=== PATIENT | female | born 1960 | race Caucasian/White ===

== ENCOUNTER → 2017-05-31 | Outpatient (CLI) | payer MEDICAID | END | disposition home or self-care (01) | LOC: LAB 15:55 | PROVIDERS: ATTEND Internal Medicine | DX: L73.9 Follicular disorder, unspecified (principal) | CPT/HCPCS: 87081 ==

== ENCOUNTER → 2017-06-25 | Outpatient (CLI) | payer MEDICAID ==
[2017-06-25 09:34] LABS: Basophils # (auto) 0.1 uL; Basophils % (auto) 1.6 % (0.0-2.0); Eosinophils # (auto) 0.2 uL; Eosinophils % (auto) 5.1 % (0.0-7.0); Hematocrit 40.4 % (36.0-46.0); Hemoglobin 13.2 g/dL (12.2-16.2); Lymphocytes # (auto) 1.2 uL; Lymphocytes % (auto) 35.9 % (10.0-50.0); Mean Corpuscular Hemoglobin 30.9 pg (28.0-32.0); Mean Corpuscular Hgb Conc. 32.7 g/dL (32.0-36.0); Mean Corpuscular Volume 94.6 fL (80.0-100.0); Monocytes # (auto) 0.5 uL; Monocytes % (auto) 15.7 % (0.0-12.0); Neutrophils # (auto) 1.3 uL; Neutrophils % (auto) 41.7 % (37.0-80.0); Platelet Count (auto) 292 10^3/uL (140-450); Red Blood Cells 4.27 10^6/uL (4.0-5.20); Red Cell Distribution Width 13.3 % (11.8-14.3); White Blood Cell 3.2 10^3/uL (4.4-10.8)
[2017-06-25 09:46] LABS: Urine Bacteria NONE SEEN /hpf (None Seen); Urine Blood Negative /uL (Negative); Urine Specific Gravity 1.018 (1.001-1.035); Urine WBC <1 /hpf (0 - 5)
[2017-06-25 11:03] LABS: Albumin 3.8 g/dL (3.4-5.0); BUN/Creatinine Ratio 15.9; Bilirubin, Total 0.2 mg/dL (0.2-1.0); Calcium 9.1 mg/dL (8.5-10.1); Potassium 3.9 mmol/L (3.5-5.1); Total Protein 7.9 g/dL (6.4-8.2)
== END | disposition home or self-care (01) ==
LOC: LAB 08:55
PROVIDERS: ATTEND Internal Medicine
DX: F32.9 Major depressive disorder, single episode, unspecified (principal); R63.5 Abnormal weight gain; R79.89 Other specified abnormal findings of blood chemistry
CPT/HCPCS: 36415; 80053; 80061; 81001; 84403; 84443; 85025; 85652

== ENCOUNTER → 2017-08-10 | Outpatient (CLI) | payer MEDICAID ==
[2017-08-10 11:10] LABS: Basophils # (auto) 0 uL; Basophils % (auto) 1.1 % (0.0-2.0); Eosinophils # (auto) 0.2 uL; Eosinophils % (auto) 3.9 % (0.0-7.0); Hematocrit 42.6 % (36.0-46.0); Lymphocytes # (auto) 1.4 uL; Lymphocytes % (auto) 32.6 % (10.0-50.0); Mean Corpuscular Hemoglobin 30.8 pg (28.0-32.0); Mean Corpuscular Hgb Conc. 32.9 g/dL (32.0-36.0); Mean Corpuscular Volume 93.4 fL (80.0-100.0); Monocytes # (auto) 0.7 uL; Neutrophils % (auto) 45.4 % (37.0-80.0); Nucleated Red Blood Cells % 0.1 %; Platelet Count (auto) 312 10^3/uL (140-450); Red Blood Cells 4.56 10^6/uL (4.0-5.20); Red Cell Distribution Width 12.7 % (11.8-14.3); White Blood Cell 4.3 10^3/uL (4.4-10.8)
== END | disposition home or self-care (01) ==
LOC: LAB 10:29
PROVIDERS: ATTEND Internal Medicine
DX: D72.819 Decreased white blood cell count, unspecified (principal); E53.8 Deficiency of other specified B group vitamins
CPT/HCPCS: 36415; 82607; 85025

== ENCOUNTER → 2019-05-16 | Outpatient (CLI) | payer MEDICAID ==
[2019-05-16 12:49] LABS: Urine WBC None Seen /hpf (0 - 5)
[2019-05-16 12:51] LABS: Basophils # (auto) 0 10 ^3/uL (0-0.2); Basophils % (auto) 1.2 % (0.0-2.0); Eosinophils # (auto) 0.1 10 ^3/uL (0-0.8); Hematocrit 40.3 % (36.0-46.0); Hemoglobin 13.4 g/dL (12.2-16.2); Lymphocytes # (auto) 1.1 10 ^3/uL (0.4-5.4); Lymphocytes % (auto) 32.8 % (10.0-50.0); Mean Corpuscular Hemoglobin 31.6 pg (28.0-32.0); Mean Corpuscular Hgb Conc. 33.4 g/dL (32.0-36.0); Mean Corpuscular Volume 94.7 fL (80.0-100.0); Monocytes # (auto) 0.4 10 ^3/uL (0-1.3); Neutrophils # (auto) 1.6 10 ^3/uL (1.6-8.6); Platelet Count (auto) 306 10^3/uL (140-450); Red Blood Cells 4.25 10^6/uL (4.0-5.20); Red Cell Distribution Width 13.4 % (11.8-14.3); White Blood Cell 3.2 10^3/uL (4.4-10.8)
[2019-05-16 12:58] LABS: Urine Bacteria FEW /hpf (None Seen); Urine Blood Negative /uL (Negative); Urine Specific Gravity 1.007 (1.001-1.035)
[2019-05-16 13:17] LABS: Albumin 3.7 g/dL (3.4-5.0); Calcium 9.2 mg/dL (8.5-10.1); Potassium 4.2 mmol/L (3.5-5.1)
[2019-05-16 13:23] LABS: BUN/Creatinine Ratio 13.3; Bilirubin, Total 0.6 mg/dL (0.2-1.0); Total Protein 7.8 g/dL (6.4-8.2)
== END | disposition home or self-care (01) ==
LOC: LAB 12:30
PROVIDERS: ATTEND Internal Medicine
DX: K59.00 Constipation, unspecified (principal); F32.9 Major depressive disorder, single episode, unspecified
CPT/HCPCS: 36415; 80053; 80061; 81001; 84439; 84443; 85025; 85652

== ENCOUNTER → 2019-05-27 | Outpatient (CLI) | payer MEDICAID | END | disposition home or self-care (01) | LOC: LAB 08:45 | PROVIDERS: ATTEND Internal Medicine | DX: K59.00 Constipation, unspecified (principal); F32.9 Major depressive disorder, single episode, unspecified | CPT/HCPCS: 82270 ==

== ENCOUNTER → 2020-07-30 | Outpatient (CLI) | payer MEDICAID ==
[2020-07-30 11:50] LABS: Cholesterol 232 mg/dL (< 200)
[2020-07-30 11:53] LABS: HDL Cholesterol 91 mg/dL (40-59); LDL Cholesterol 130 mg/dL (< 100); Triglycerides 94 mg/dL (< 150)
== END | disposition home or self-care (01) ==
LOC: LAB 10:51
PROVIDERS: ATTEND Internal Medicine
DX: Z12.11 Encounter for screening for malignant neoplasm of colon (principal); E78.5 Hyperlipidemia, unspecified
CPT/HCPCS: 36415; 80061

== ENCOUNTER → 2021-02-10 | Outpatient (CLI) | payer MEDICAID ==
[2021-02-10 11:25] LABS: Cholesterol 258 mg/dL (< 200); HDL Cholesterol 112 mg/dL (40-59); LDL Cholesterol 119 mg/dL (< 100); Triglycerides 85 mg/dL (< 150)
== END | disposition home or self-care (01) ==
LOC: LAB 10:37
PROVIDERS: ATTEND Internal Medicine
DX: Z12.11 Encounter for screening for malignant neoplasm of colon (principal); E78.5 Hyperlipidemia, unspecified
CPT/HCPCS: 36415; 80061; 82270

== ENCOUNTER → 2021-08-11 | Outpatient (CLI) | payer MEDICAID ==
[2021-08-11 13:00] LABS: Basophils # (auto) 0.1 10 ^3/uL (0-0.2); Basophils % (auto) 2.4 % (0.0-2.0); Eosinophils # (auto) 0.2 10 ^3/uL (0-0.8); Eosinophils % (auto) 5.1 % (0.0-7.0); Hematocrit 38.5 % (36.0-46.0); Lymphocytes # (auto) 1.2 10 ^3/uL (0.4-5.4); Lymphocytes % (auto) 36.8 % (10.0-50.0); Mean Corpuscular Hemoglobin 32.3 pg (28.0-32.0); Mean Corpuscular Hgb Conc. 33.9 g/dL (32.0-36.0); Mean Corpuscular Volume 95.3 fL (80.0-100.0); Monocytes # (auto) 0.4 10 ^3/uL (0-1.3); Neutrophils # (auto) 1.5 10 ^3/uL (1.6-8.6); Neutrophils % (auto) 44.7 % (37.0-80.0); Nucleated Red Blood Cells % 0.1 %; Red Blood Cells 4.04 10^6/uL (4.0-5.20); Red Cell Distribution Width 13.1 % (11.8-14.3); White Blood Cell 3.3 10^3/uL (4.4-10.8)
[2021-08-11 13:11] LABS: Urine Bacteria NONE SEEN /hpf (None Seen); Urine Blood Negative /uL (Negative); Urine Specific Gravity 1.014 (1.001-1.035); Urine WBC 1 /hpf (0 - 5)
[2021-08-11 13:24] LABS: Albumin 3.6 g/dL (3.4-5.0); BUN/Creatinine Ratio 15.9; Calcium 9.1 mg/dL (8.5-10.1); Potassium 3.8 mmol/L (3.5-5.1)
[2021-08-11 13:29] LABS: Bilirubin, Total 0.3 mg/dL (0.2-1.0); Total Protein 7.6 g/dL (6.4-8.2)
== END | disposition home or self-care (01) ==
LOC: LAB 12:42
PROVIDERS: ATTEND Internal Medicine
DX: Z00.00 Encounter for general adult medical examination without abnormal findings (principal); E78.5 Hyperlipidemia, unspecified; F32.9 Major depressive disorder, single episode, unspecified
CPT/HCPCS: 36415; 80053; 80061; 81001; 83036; 84443; 85025

== ENCOUNTER → 2022-08-16 | Outpatient (CLI) | payer MEDICAID ==
[2022-08-16 13:23] LABS: Basophils # (auto) 0 10 ^3/uL (0-0.2); Basophils % (auto) 0.8 % (0.0-2.0); Eosinophils # (auto) 0.2 10 ^3/uL (0-0.8); Eosinophils % (auto) 3.9 % (0.0-7.0); Hematocrit 39.1 % (36.0-46.0); Hemoglobin 13.1 g/dL (12.2-16.2); Lymphocytes # (auto) 1.5 10 ^3/uL (0.4-5.4); Lymphocytes % (auto) 36.9 % (10.0-50.0); Mean Corpuscular Hgb Conc. 33.6 g/dL (32.0-36.0); Mean Corpuscular Volume 95.2 fL (80.0-100.0); Monocytes # (auto) 0.6 10 ^3/uL (0-1.3); Monocytes % (auto) 14.4 % (0.0-12.0); Neutrophils # (auto) 1.8 10 ^3/uL (1.6-8.6); Nucleated Red Blood Cells % 0.1 %; Red Blood Cells 4.11 10^6/uL (4.0-5.20); Red Cell Distribution Width 13.5 % (11.8-14.3); White Blood Cell 4.1 10^3/uL (4.4-10.8)
[2022-08-16 13:59] LABS: Albumin 3.7 g/dL (3.4-5.0); Calcium 8.6 mg/dL (8.5-10.1); Potassium 4.3 mmol/L (3.5-5.1)
[2022-08-16 14:04] LABS: Bilirubin, Total 0.5 mg/dL (0.2-1.0); Total Protein 7.4 g/dL (6.4-8.2)
== END | disposition home or self-care (01) ==
LOC: LAB 13:00
PROVIDERS: ATTEND Internal Medicine
DX: K62.82 Dysplasia of anus (principal); E78.5 Hyperlipidemia, unspecified
CPT/HCPCS: 36415; 80053; 80061; 82270; 85025

== ENCOUNTER → 2023-04-05 | Outpatient (CLI) | payer MEDICAID ==
[2023-04-05 13:26] LABS: Triglycerides 117 mg/dL (< 150)
[2023-04-05 13:27] LABS: LDL Cholesterol 134 mg/dL (< 100)
[2023-04-05 13:28] LABS: Cholesterol 258 mg/dL (< 200); HDL Cholesterol 100 mg/dL (40-59)
== END | disposition home or self-care (01) ==
LOC: LAB 12:47
PROVIDERS: ATTEND Internal Medicine
DX: E72.59 Other disorders of glycine metabolism (principal)
CPT/HCPCS: 36415; 80061; 83036

== ENCOUNTER → 2023-11-29 | Outpatient (CLI) | payer MEDICAID ==
[2023-11-29 16:09] LABS: Basophils # (auto) 0 10 ^3/uL (0-0.2); Basophils % (auto) 0.6 % (0.0-2.0); Eosinophils # (auto) 0.1 10 ^3/uL (0-0.8); Hematocrit 38.1 % (36.0-46.0); Hemoglobin 12.8 g/dL (12.2-16.2); Lymphocytes # (auto) 0.8 10 ^3/uL (0.4-5.4); Lymphocytes % (auto) 14.1 % (10.0-50.0); Mean Corpuscular Hemoglobin 31.6 pg (28.0-32.0); Mean Corpuscular Hgb Conc. 33.7 g/dL (32.0-36.0); Mean Corpuscular Volume 93.8 fL (80.0-100.0); Monocytes # (auto) 0.7 10 ^3/uL (0-1.3); Monocytes % (auto) 12.4 % (0.0-12.0); Neutrophils # (auto) 4.3 10 ^3/uL (1.6-8.6); Neutrophils % (auto) 71.9 % (37.0-80.0); Platelet Count (auto) 472 10^3/uL (140-450); Red Blood Cells 4.06 10^6/uL (4.0-5.20); Red Cell Distribution Width 12.7 % (11.8-14.3)
== END | disposition home or self-care (01) ==
LOC: LAB 15:36
PROVIDERS: ATTEND Internal Medicine
DX: D72.819 Decreased white blood cell count, unspecified (principal); E78.5 Hyperlipidemia, unspecified
CPT/HCPCS: 36415; 84443; 85025

== ENCOUNTER 2023-12-07 08:02 | Emergency (ER) | payer MEDICAID ==
[~2023-12-07] VITALS: Ht 157.5 cm; Wt 52.5 kg
[2023-12-07 09:32] LABS: Basophils # (auto) 0 10 ^3/uL (0-0.2); Eosinophils # (auto) 0.1 10 ^3/uL (0-0.8); Nucleated Red Blood Cells % 0.1 %; Red Blood Cells 3.72 10^6/uL (4.0-5.20); Red Cell Distribution Width 12.8 % (11.8-14.3)
[2023-12-07 09:35] VITALS: BP 117/60; PULSE 99; RESP 16; TEMP 97.5; O2SAT 100
[2023-12-07 09:36] LABS: Basophils % (auto) 0.7 % (0.0-2.0); Eosinophils % (auto) 2.3 % (0.0-7.0); Hematocrit 35.1 % (36.0-46.0); Lymphocytes # (auto) 1.2 10 ^3/uL (0.4-5.4); Lymphocytes % (auto) 22.7 % (10.0-50.0); Mean Corpuscular Hemoglobin 32.2 pg (28.0-32.0); Mean Corpuscular Volume 94.5 fL (80.0-100.0); Monocytes # (auto) 0.7 10 ^3/uL (0-1.3); Monocytes % (auto) 13.9 % (0.0-12.0); Neutrophils # (auto) 3.1 10 ^3/uL (1.6-8.6); Neutrophils % (auto) 60.4 % (37.0-80.0); Platelet Count (auto) 448 10^3/uL (140-450); White Blood Cell 5.1 10^3/uL (4.4-10.8)
[2023-12-07 09:40] LABS: Chloride 106 mmol/L (98-107); Potassium 3.9 mmol/L (3.5-5.1); Sodium 138 mmol/L (136-145)
[2023-12-07 09:41] LABS: Anion Gap 8 (5-15); Calcium 9.8 mg/dL (8.7-10.4); Carbon Dioxide 24 mmol/L (20-31)
[2023-12-07 09:46] LABS: BUN/Creatinine Ratio 11.8 (10.0-20.0); Blood Urea Nitrogen 8 mg/dL (9-23); Glucose 102 mg/dL (74-106)
[2023-12-07 10:14] LABS: Urine Bacteria FEW /hpf (None Seen); Urine Blood Negative /uL (Negative); Urine Color Light-Yellow (Yellow); Urine Protein, UAD Negative (Negative); Urine Specific Gravity 1.012 (1.001-1.035); Urine Urobilinogen Normal (Negative); Urine WBC 6 /hpf (0 - 5); Urine pH 6.5 (5.0-9.0)
[2023-12-07 10:18] LABS: Urine Clarity Hazy (Clear)
[2023-12-07 10:45] LABS: Erythrocyte Sedimentation Rate 83 mm/hr (0-20)
[2023-12-07] MEDS: KETOROLAC TROMETH 60MG/2ML VIAL IM ONE (11:09)
[2023-12-07] MEDS ORDERED: PRED20TA2 PO (11:24)
[2023-12-07] MEDS ORDERED: KETO2CRE4 TOP (11:24)
[2023-12-07] MEDS ORDERED: NAPR-746 PO (11:24)
[2023-12-07 12:09] LABS: Uric Acid 2.8 mg/dL (3.1-7.8)
== END 2023-12-07 11:35 | disposition home or self-care (01) ==
LOC: ER 08:02
DX: I00 Rheumatic fever without heart involvement (principal); L21.0 Seborrhea capitis; Z79.52 Long term (current) use of systemic steroids
CPT/HCPCS: 36415; 80048; 81001; 84550; 85025; 85652; 96372; 99283; J1885

== ENCOUNTER → 2024-01-08 | Outpatient (CLI) | payer MEDICAID ==
[~2024-01-08] MED LIST: KETO2CRE4 TOP; NAPR-746 PO; PRED20TA2 PO
[2024-01-08 13:52] LABS: Basophils # (auto) 0 10 ^3/uL (0-0.2); Eosinophils # (auto) 0.2 10 ^3/uL (0-0.8); Eosinophils % (auto) 4.8 % (0.0-7.0); Hematocrit 35.7 % (36.0-46.0); Hemoglobin 12.1 g/dL (12.2-16.2); Lymphocytes # (auto) 1.2 10 ^3/uL (0.4-5.4); Lymphocytes % (auto) 32.4 % (10.0-50.0); Mean Corpuscular Hemoglobin 32.5 pg (28.0-32.0); Mean Corpuscular Volume 95.8 fL (80.0-100.0); Monocytes # (auto) 0.6 10 ^3/uL (0-1.3); Monocytes % (auto) 15.1 % (0.0-12.0); Neutrophils # (auto) 1.8 10 ^3/uL (1.6-8.6); Neutrophils % (auto) 46.7 % (37.0-80.0); Platelet Count (auto) 360 10^3/uL (140-450); Red Blood Cells 3.73 10^6/uL (4.0-5.20); Red Cell Distribution Width 15.5 % (11.8-14.3); White Blood Cell 3.8 10^3/uL (4.4-10.8)
[2024-01-08 14:25] LABS: Erythrocyte Sedimentation Rate 14 mm/hr (0-20)
[2024-01-08 14:41] LABS: Free T3 3.32 pg/mL (2.3-4.2)
[2024-01-09 08:07] LABS: Complement C3 127 mg/dL (82-167); Rheumatoid Arthritis Factor 11.4 IU/mL (<14.0); Thyroid Peroxidase (TPO) Ab <9 IU/mL (0-34)
[2024-01-09 09:07] LABS: Anti-Nuclear Antibody Direct Negative (Negative); Anti-dsDNA Antibody <1 IU/mL (0-9); Antiscleroderma-70 Antibody <0.2 AI (0.0-0.9); RNP Antibody <0.2 AI (0.0-0.9); Sjogren's Anti-SS-A Antibody <0.2 AI (0.0-0.9); Sjogren's Anti-SS-B Antibody <0.2 AI (0.0-0.9); Smith Antibody <0.2 AI (0.0-0.9)
[2024-01-10 15:07] LABS: Actin (Smooth Muscle) Antibody 6 Units (0-19); Mitochondrial (M2) Antibody <20.0 Units (0.0-20.0)
== END | disposition home or self-care (01) ==
LOC: LAB 13:35
PROVIDERS: ATTEND Internal Medicine
DX: D64.9 Anemia, unspecified (principal); E78.5 Hyperlipidemia, unspecified
CPT/HCPCS: 36415; 84439; 84443; 84481; 85025; 85652; 86160; 86225; 86235; 86376; 86431

== ENCOUNTER → 2024-05-06 | Outpatient (CLI) | payer MEDICAID ==
[2024-05-06 12:41] LABS: Basophils # (auto) 0 10 ^3/uL (0-0.2); Basophils % (auto) 0.9 % (0.0-2.0); Eosinophils # (auto) 0.1 10 ^3/uL (0-0.8); Hematocrit 39.4 % (36.0-46.0); Hemoglobin 13.4 g/dL (12.2-16.2); Lymphocytes # (auto) 1.3 10 ^3/uL (0.4-5.4); Lymphocytes % (auto) 35.9 % (10.0-50.0); Mean Corpuscular Hemoglobin 31.5 pg (28.0-32.0); Mean Corpuscular Hgb Conc. 33.9 g/dL (32.0-36.0); Mean Corpuscular Volume 93.2 fL (80.0-100.0); Monocytes # (auto) 0.5 10 ^3/uL (0-1.3); Monocytes % (auto) 14.4 % (0.0-12.0); Neutrophils # (auto) 1.6 10 ^3/uL (1.6-8.6); Neutrophils % (auto) 44.8 % (37.0-80.0); Nucleated Red Blood Cells % 0.2 %; Platelet Count (auto) 316 10^3/uL (140-450); Red Blood Cells 4.23 10^6/uL (4.0-5.20); Red Cell Distribution Width 13.1 % (11.8-14.3); White Blood Cell 3.7 10^3/uL (4.4-10.8)
[2024-05-06 13:08] LABS: Alanine Aminotransferase 19 U/L (7-40); Albumin 4.6 g/dL (3.2-4.8); Anion Gap 9 (5-15); Aspartate Aminotransferase 16 U/L (13-40); BUN/Creatinine Ratio 14.5 (10.0-20.0); Blood Urea Nitrogen 10 mg/dL (9-23); Carbon Dioxide 26 mmol/L (20-31); Chloride 106 mmol/L (98-107); Potassium 4.1 mmol/L (3.5-5.1); Sodium 141 mmol/L (136-145); Total Protein 7.4 g/dL (5.7-8.2); Triglycerides 113 mg/dL (< 150)
[2024-05-06 13:09] LABS: Bilirubin, Total 0.6 mg/dL (0.2-1.0)
[2024-05-06 13:13] LABS: Cholesterol 248 mg/dL (< 200); Glucose 107 mg/dL (74-106); HDL Cholesterol 93 mg/dL (40-59); LDL Cholesterol 141 mg/dL (< 100)
[2024-05-06 13:44] LABS: Alkaline Phosphatase 58 U/L (46-116)
== END | disposition home or self-care (01) ==
LOC: LAB 11:51
PROVIDERS: ATTEND Internal Medicine
DX: Z12.11 Encounter for screening for malignant neoplasm of colon (principal); E78.5 Hyperlipidemia, unspecified
CPT/HCPCS: 36415; 80053; 80061; 85025

== ENCOUNTER → 2024-05-13 | Outpatient (CLI) | payer MEDICAID | END | disposition home or self-care (01) | LOC: LAB 11:21 | PROVIDERS: ATTEND Internal Medicine | DX: Z12.11 Encounter for screening for malignant neoplasm of colon (principal); E78.5 Hyperlipidemia, unspecified | CPT/HCPCS: 82270 ==

== ENCOUNTER → 2024-07-21 | Outpatient (CLI) | payer MEDICAID | END | disposition home or self-care (01) | LOC: LAB 12:42 | PROVIDERS: ATTEND Obstetrics & Gynecology | DX: N95.1 Menopausal and female climacteric states (principal) | CPT/HCPCS: 82670; 83001 ==